=== PATIENT | female | born 1995 | race Caucasian/White ===

== ENCOUNTER 2019-03-25 16:37 | Inpatient (IN) ==
[2019-03-25] MEDS: NS 1,000 ML IV SCH (17:50)
[2019-03-25] MEDS: ZOSYN 3.375 GM in NS 50 ML IV SCH ×2 (17:50→23:26)
[2019-03-25] MEDS: TORADOL IV PRN (17:57)
[2019-03-25 18:27] LABS: BASO# 0.01 X1000 (0.0-0.2); BASO% 0.1 % (0.0-0.8); EOS# 0.07 X1000 (0.0-0.7); HEMATOCRIT 33.9 % (37.0-47.0); HEMOGLOBIN 11.5 g/dL (12.0-16.0); IMM GRAN# 0.03 X1000 (0.0-0.04); IMM GRAN% 0.4 % (0.0-0.5); LYMPH# 1.27 X1000 (1.2-3.4); LYMPH% 18.1 % (20.5-51.1); MCH 32.6 PG (27-31); MCHC 33.9 g/dL (33-37); MONO# 0.44 X1000 (0.11-0.59); MONO% 6.3 % (1.7-9.3); MPV 8.5 FL (7.4-10.4); NEUT# 5.18 X1000 (1.4-6.5); NEUT% 74.1 % (42.2-75.2); PLT 227 X1000 (130-400); RBC 3.53 XMIL (4.2-5.4); RDW 14.6 % (11.5-14.5)
[2019-03-25 18:44] LABS: AGAP 12; BUN 9 mg/dL (8-22); CALCIUM 8.7 mg/dL (8.8-10.2); CHLORIDE 105 mmol/L (98-107); COSMO 279; CREATININE 0.7 mg/dL (0.5-0.9); ESTIMATED GFR > 60; GLUCOSE 87 mg/dL (70-104); POTASSIUM 3.8 mmol/L (3.5-5.1); SODIUM 141 mmol/L (136-145); TCO2 24 mmol/L (25-35)
[2019-03-25 18:47] LABS: HEMOGLOBIN A1C 4.3 % (4.8-6.0)
[2019-03-25] MEDS: ZOFRAN IV PRN (20:04)
[2019-03-25] MEDS: PEPCID IV SCH (20:04)
[2019-03-25] MEDS: DILAUDID IV PRN ×2 (20:04→23:06)
[2019-03-25] MEDS: LOVENOX SUBQ SCH (21:44)
[2019-03-26] MEDS: ZOSYN 3.375 GM in NS 50 ML IV SCH ×4 (05:44→23:49)
[2019-03-26] MEDS: DILAUDID IV PRN ×5 (05:45→21:52)
[2019-03-26] MEDS: NS 1,000 ML IV SCH ×2 (06:12→18:33)
[2019-03-26] MEDS ORDERED: CIPRO HC OTIC SUSPENSION LEFT EAR SCH ×2 (09:00→13:00)
--- NOTE | 2019-03-26 09:33 | HISTORY AND PHYSICAL ---
CHIEF COMPLAINT: Persistent left-sided facial pain for the last four days. HISTORY OF PRESENT ILLNESS: She is a 23-year-old white female who was seen in the walk-in clinic. She just returned from [place]. She has a facial twitching, not able to swallow. The patient was seen in the outpatient clinic and sent home on antibiotics. The pain is excruciating, not able to chew food. 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 She was basically admitted to the hospital not able to swallow the pills. She also has significant trismus. She needs IV antibiotics and pain control. As a result, hospital admission was warranted. The patient was seen twice in the emergency room without any help. PAST MEDICAL HISTORY: Metabolic syndrome. IBS with constipation. Polycystic ovarian syndrome. PAST SURGICAL HISTORY: Appendectomy. Cholecystectomy. ALLERGIES: 1. Dilaudid. 2. Lortab. 3. Shellfish. SOCIAL HISTORY: 4 years. 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 No smoking or alcohol. FAMILY HISTORY: Father is 70 years old in good health. Mom is 60 years old in good health. GYNECOLOGIC HISTORY: Last menstrual period 4 years ago. She has an intrauterine device noted. REVIEW OF SYSTEMS: HEENT: Headache. Not able to chew the food. Left ear pain, swelling, redness, and facial twitching. Not able to swallow. No neck pain. No goiter. Cardiopulmonary: No chest pain, shortness of breath, PND or orthopnea. GI: No nausea or vomiting. No abdominal pain. : No history of urgency, frequency, or dysuria. No swelling or flexion of joint pain. Neurologic: No focal symptoms of weakness. PHYSICAL EXAMINATION: VITAL SIGNS: On exam in my office, low grade fever, tachycardic. Blood pressure is high. BMI 47. HEENT: Atraumatic and normocephalic. Left side of face is red. Facial nerve is intact. Left ear canal completely occluded with furunculosis and tenderness over the tragus noted. Mastoid is normal. NECK: No neck rigidity. CHEST: Clear. HEART: Sounds are regular. ABDOMEN: Belly is soft and obese. Nontender. Good bowel sounds. NEUROLOGIC: No neurological deficits. INVESTIGATION: CBC is normal. The rest of the labs are pending. ASSESSMENT AND PLAN: A 23-year-old white female admitted to the hospital with malignant otitis externa associated with cellulitis of the face. No improvement with outpatient treatment. Seen twice in the emergency room. Plan is IV fluids. Cipro. Hydrocortisone drops. IV Zosyn. Pain control with Toradol Follow up on the pending labs. DVT prophylaxis with Lovenox and GI prophylaxis with IV Pepcid. Zofran for nausea. If no better, consider ENT consult. We will follow up. cc: Nolan Morse MD MTDD
[2019-03-26] MEDS: TORADOL IV PRN ×3 (10:20→16:47)
[2019-03-26] MEDS: ZOFRAN IV PRN ×3 (10:20→22:18)
[2019-03-26] MEDS: CIPRO HC OTIC SUSPENSION LEFT EAR SCH ×3 (13:02→21:19)
[2019-03-26] MEDS ORDERED: DILAUDID IV ONE (18:11)
[2019-03-26] MEDS: SODIUM CHLORIDE 0.9% INJ SCH (18:23)
[2019-03-26] MEDS: PEPCID IV SCH ×2 (18:23→19:38)
[2019-03-26] MEDS: LOVENOX SUBQ SCH (21:39)
--- NOTE | 2019-03-26 21:57 | CONSULTATION ---
DATE OF CONSULTATION: 03/26/2019 HISTORY OF PRESENT ILLNESS: 23-year-old young lady who was admitted with facial cellulitis and otitis externa. She has been on Cipro HC drops and IV antibiotics. She has had some progress but still with swelling of the left parotid area external canal and pain in the left neck. PHYSICAL EXAM: Constitutional: Normal head and face. There is swelling of the left preauricular area. It is tender to palpation. It is not indurated. Oral cavity, oropharynx normal. There is trismus left ear canal. No definable landmarks and there is purulence and the ear canal is swollen shut. IMPRESSION: Left otitis externa. Wick placed in the left ear and Cipro HC instilled. Discussed with nursing staff to keep the wick moist with the Cipro HC. We will continue other medications. We will see her tomorrow and change the wick. She should improve with the ear wick. cc: MD Nolan Osorio MD
--- NOTE | 2019-03-26 21:59 | PROGRESS NOTE ---
DATE: 03/26/2019 SUBJECTIVE: Patient has a lot of pain, left side. No fever. Vitals are stable. PHYSICAL EXAMINATION: Temperature is 99.2 degrees, pulse 98. Vitals are stable. Ear canal completely occluded with furunculosis and Libby on the tragus. Redness is improving on the left side of the face. Facial nerve is intact. Physical exam: No change. LABS: Sedimentation rate was 60. CBC and SMA 7 were normal. ASSESSMENT AND PLAN: 1. Malignant otitis externa, currently on intravenous Zosyn, excruciating pain. Continue on Dilaudid and Toradol. 2. Ciprodex Otic drops were given. 3. Deep venous thrombosis and gastrointestinal prophylaxis as per order sheet. 4. Advance the diet as tolerated. 5. Continue intravenous fluids. 6. ENT consult with Dr. Burgess and will follow up. LEVEL OF DOCUMENTATION: 25 minutes. cc: Nolan Morse MD
[2019-03-27] MEDS ORDERED: PHENERGAN IV ONE ×2 (00:56→19:33)
[2019-03-27] MEDS ORDERED: SODIUM CHLORIDE 0.9% INJ ONE ×2 (00:56→19:33)
[2019-03-27] MEDS: TORADOL IV PRN (01:26)
[2019-03-27] MEDS: DILAUDID IV PRN ×4 (06:05→16:31)
[2019-03-27] MEDS: ZOSYN 3.375 GM in NS 50 ML IV SCH ×4 (06:05→23:50)
[2019-03-27] MEDS: PEPCID IV SCH ×2 (06:06→18:59)
[2019-03-27] MEDS: ZOFRAN IV PRN ×4 (06:06→23:51)
[2019-03-27] MEDS: NS 1,000 ML IV SCH ×3 (06:50→19:30)
[2019-03-27] MEDS: CIPRO HC OTIC SUSPENSION LEFT EAR SCH ×4 (08:22→21:39)
[2019-03-27] MEDS: OFIRMEV 1000 MG/ISOTONIC SOLN 1,000 MG/100 ML BOTTLE IV SCH (09:30)
--- NOTE | 2019-03-27 21:57 | PROGRESS NOTE ---
DATE: 03/27/2019 SUBJECTIVE: The patient is in excruciating pain. Appreciated Dr. Burgess's consult. OBJECTIVE: Vital Signs: Afebrile. Vitals are stable. HEENT: Decreased redness on the left side of the face. Tenderness on the tragus wick was replaced today. No LABORATORY: No labs obtained. ASSESSMENT AND PLAN: 1. Malignant otitis externa with furunculosis and cellulitis, improving. Continue present treatment with IV Zosyn, Ciprodex. 2. IV fluids. 3. Zofran for nausea, along with Phenergan. 4. Unable to tolerate Lovenox for GI bleeding in the past and IV Tylenol as needed and continue present treatment. LEVEL OF DOCUMENTATION: 25 minutes. cc: Nolan Morse MD MTDD
[2019-03-28] MEDS: DILAUDID IV PRN ×5 (01:06→23:40)
[2019-03-28] MEDS: ZOSYN 3.375 GM in NS 50 ML IV SCH ×4 (05:13→23:15)
[2019-03-28] MEDS: PEPCID IV SCH ×2 (06:00→18:49)
[2019-03-28] MEDS: ZOFRAN IV PRN ×4 (07:21→23:39)
[2019-03-28] MEDS: NS 1,000 ML IV SCH (07:22)
[2019-03-28] MEDS: OFIRMEV 1000 MG/ISOTONIC SOLN 1,000 MG/100 ML BOTTLE IV SCH (08:15)
[2019-03-28] MEDS: CIPRO HC OTIC SUSPENSION LEFT EAR SCH ×4 (08:22→21:50)
[2019-03-28] MEDS: FLAGYL 500 MG/NS 500 MG/100 ML IVPB IV SCH ×2 (10:25→17:13)
--- NOTE | 2019-03-28 11:25 | PROGRESS NOTE ---
DATE: 03/28/2019 SUBJECTIVE: She is better today. She has less pain. The wick was changed. The ear canal was much less swollen. Wick was replaced. There was less preauricular swelling and less tenderness. She is having some nausea and vomiting with movement and vertigo. OBJECTIVE: Swelling of the preauricular area without induration. It is less tender to palpation. The ear canal is more open. Wick has been replaced. IMPRESSION: 1. Left otitis externa. 2. Vertigo which is probably related to her inner ear. RECOMMENDATIONS: 1. From an otitis externa standpoint, she should continue the drops with the wick for another 24 hours, then we will remove the wick and drops only. I have told her I would like to see her in the office on Sunday. From an otitis externa standpoint, she could be discharged in the morning. 2. Vertigo. Would recommend Antivert 25 q.8 hours p.r.n. If this does not work, then Valium 5 mg q.8 p.r.n., but would like to try the Antivert first. We can work on the vertigo inner ear problems as an outpatient. cc: MD Nolan Osorio MD
[2019-03-28] MEDS: ANTIVERT PO SCH ×2 (13:35→17:11)
[2019-03-28] MEDS ORDERED: SODIUM CHLORIDE 0.9% INJ ONE (18:16)
[2019-03-28] MEDS ORDERED: PHENERGAN IV ONE (18:16)
[2019-03-28] MEDS ORDERED: TRANSDERM-SCOP TD SCH (18:30)
--- NOTE | 2019-03-28 21:37 | PROGRESS NOTE ---
DATE: 03/28/2019 SUBJECTIVE: The patient complains of dizziness, vertigo, tremulous, nausea, diarrhea. EXAMINATION: Vital Signs: Temperature is 98, pulse 71, blood pressure is stable. HEENT: decreased tenderness.on tragus Facial nerve is intact. Neck: Supple. No lymphadenopathy. Chest: Bilateral air entry. Heart: Heart sounds are regular. Abdomen: Belly is soft, nontender. Good bowel sounds. INVESTIGATIONS: None reported. A1c 4.3. Stool cultures were negative. Occult blood positive, white cells are few. ASSESSMENT AND PLAN: 1. Malignant otitis externa. Currently she is on IV Zosyn. 2. Dizziness and vertigo. They will start on scopolamine patch and meclizine. 3. Continue Cipro, hydrocortisone drops. 4. GI prophylaxis with Pepcid. 5. Diarrhea, rule out PMC. Started on IV Flagyl, also probiotics. Repeat the labs in the morning. LEVEL OF DOCUMENTATION: 25 minutes. cc: Nolan Morse MD MTDD
[2019-03-29] MEDS: FLAGYL 500 MG/NS 500 MG/100 ML IVPB IV SCH ×3 (01:20→18:41)
[2019-03-29] MEDS: NS 1,000 ML IV SCH ×3 (01:21→20:30)
[2019-03-29] MEDS: DILAUDID IV PRN ×5 (02:23→22:08)
[2019-03-29] MEDS: ZOSYN 3.375 GM in NS 50 ML IV SCH ×4 (05:06→22:14)
[2019-03-29] MEDS: ZOFRAN IV PRN ×4 (05:49→20:30)
[2019-03-29] MEDS: SODIUM CHLORIDE 0.9% INJ SCH ×2 (05:50→18:41)
[2019-03-29] MEDS: PEPCID IV SCH ×3 (05:58→18:41)
[2019-03-29 07:23] LABS: BASO% 0.1 % (0.0-0.8); EOS% 1.5 % (0.0-10.0); HEMOGLOBIN 11.1 g/dL (12.0-16.0); IMM GRAN% 1.1 % (0.0-0.5); LYMPH% 22.4 % (20.5-51.1); MCH 31.7 PG (27-31); MCHC 33.6 g/dL (33-37); MCV 94.3 FL (81-99); MONO% 6.5 % (1.7-9.3); MPV 8.2 FL (7.4-10.4); NEUT% 68.4 % (42.2-75.2); PLT 266 X1000 (130-400); RDW 14.3 % (11.5-14.5); WBC 7.89 X1000 (4.8-10.8)
[2019-03-29 07:24] LABS: BASO# 0.01 X1000 (0.0-0.2); EOS# 0.12 X1000 (0.0-0.7); IMM GRAN# 0.09 X1000 (0.0-0.04); LYMPH# 1.77 X1000 (1.2-3.4); MONO# 0.51 X1000 (0.11-0.59); NEUT# 5.39 X1000 (1.4-6.5)
[2019-03-29 07:38] LABS: AGAP 12; BUN 6 mg/dL (8-22); CALCIUM 8.7 mg/dL (8.8-10.2); CHLORIDE 103 mmol/L (98-107); COSMO 276; CREATININE 0.6 mg/dL (0.5-0.9); ESTIMATED GFR > 60; GLUCOSE 82 mg/dL (70-104); POTASSIUM 3.7 mmol/L (3.5-5.1); SODIUM 140 mmol/L (136-145); TCO2 25 mmol/L (25-35)
[2019-03-29] MEDS: CIPRO HC OTIC SUSPENSION LEFT EAR SCH ×4 (10:02→20:30)
[2019-03-29] MEDS: CULTURELLE PO SCH (10:02)
[2019-03-29] MEDS: ANTIVERT PO SCH ×3 (10:02→18:41)
[2019-03-29] MEDS: OFIRMEV 1000 MG/ISOTONIC SOLN 1,000 MG/100 ML BOTTLE IV SCH (10:02)
--- NOTE | 2019-03-29 16:38 | PROGRESS NOTE ---
DATE: 03/29/2019 SUBJECTIVE: Ms. Trivedi has acute otitis externa, as well as labyrinthitis. She is still dizzy and Antivert is helping her. We will continue with the current management. Will try to give her Zofran. -8 cc: MD Nolan Beverly MD
[2019-03-30] MEDS: ZOFRAN IV PRN ×5 (00:49→19:45)
[2019-03-30] MEDS: FLAGYL 500 MG/NS 500 MG/100 ML IVPB IV SCH ×3 (00:49→18:03)
[2019-03-30] MEDS: ZOSYN 3.375 GM in NS 50 ML IV SCH ×3 (05:22→17:03)
[2019-03-30] MEDS: PEPCID IV SCH ×3 (05:46→18:03)
[2019-03-30] MEDS: DILAUDID IV PRN ×4 (05:46→19:51)
[2019-03-30] MEDS: ANTIVERT PO SCH ×3 (08:55→18:03)
[2019-03-30] MEDS: OFIRMEV 1000 MG/ISOTONIC SOLN 1,000 MG/100 ML BOTTLE IV SCH (08:55)
[2019-03-30] MEDS: CULTURELLE PO SCH (08:55)
[2019-03-30] MEDS: CIPRO HC OTIC SUSPENSION LEFT EAR SCH ×5 (08:56→23:28)
[2019-03-30] MEDS: NS 1,000 ML IV SCH (11:08)
--- NOTE | 2019-03-30 13:11 | PROGRESS NOTE ---
DATE: 03/30/2019 Ms Trivedi's CBC is normal. She had an inflammation around the left ear and outside. She is getting IV antibiotics. 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 She is to be followed by Dr. Burgess. She is getting Ciprodex ear drops, IV metronidazole, as well as piperacillin. -2 cc: MD Nolan Beverly MD
[2019-03-30] MEDS: SODIUM CHLORIDE 0.9% INJ SCH (18:03)
[2019-03-31] MEDS: NS 1,000 ML IV SCH ×2 (00:09→11:04)
[2019-03-31] MEDS: ZOSYN 3.375 GM in NS 50 ML IV SCH ×3 (00:09→11:19)
[2019-03-31] MEDS: ZOFRAN IV PRN ×3 (00:09→11:09)
[2019-03-31] MEDS: DILAUDID IV PRN ×3 (00:10→11:09)
[2019-03-31] MEDS: FLAGYL 500 MG/NS 500 MG/100 ML IVPB IV SCH ×2 (00:26→10:00)
[2019-03-31] MEDS: PEPCID IV SCH (06:23)
[2019-03-31 07:32] VITALS: BP 127/74
[2019-03-31] MEDS: ANTIVERT PO SCH (08:42)
[2019-03-31] MEDS: OFIRMEV 1000 MG/ISOTONIC SOLN 1,000 MG/100 ML BOTTLE IV SCH (08:42)
[2019-03-31] MEDS: CULTURELLE PO SCH (08:42)
[2019-03-31] MEDS: CIPRO HC OTIC SUSPENSION LEFT EAR SCH (08:45)
== END 2019-03-31 11:53 | disposition home or self-care (01) | DRG 155 ==
LOC: DIRADM 16:37 → 3N 17:01
PROVIDERS: ADMIT Internal Medicine; ATTEND Internal Medicine
CPT/HCPCS: 80048; 82270; 82948; 83036; 85025; 85651; 87205; 87324; 89055; A9270; J0131; J1170; J1650; J1885; J2405; J2543; J2550; J7030; S0028; S0030; XXXXX